=== PATIENT | male | born 1980 | race African-American/Black ===

== ENCOUNTER 2020-06-26 16:06 | Emergency (ER) | payer OTHER, SELFPAY ==
[2020-06-26] VITALS (15 sets, daily range): BP systolic 131–178; BP diastolic 61–99; PULSE 62–83; RESP 12–20; TEMP 36.6–36.8; O2SAT 94–100
--- NOTE | ~2020-06-26 | CT_ITS ---
EXAMINATION: CT brain wo con EXAM DATE: 06/26/2020 19:05 INDICATION: Dizziness. TECHNIQUE: Spiral CT of the head was performed without contrast. Axial, coronal and sagittal images were reviewed. The dose-length product (DLP) for this examination was 605.33 mGy-cm. The exposure w as tailored according to patient size, and iterative reconstruction (ASIR) was used as additional dos e reduction technique. There is no prior study for comparison. FINDINGS: There is no acute intraparenchymal hemorrhage. No evidence of intraparenchymal brain mass lesion. No evidence of acute infarction. There is no mass effect or midline shift. The ventricles are normal in size. There are no extra-axial collections. There are no acute calvarial fractures. T he orbits are unremarkable. Soft tissue is unremarkable. The visualized sinuses and mastoid air yaw ls are well aerated. IMPRESSION: 1. Normal head CT examination. Reviewed, dictated and finalized at location A.
--- NOTE | ~2020-06-26 | XR_ITS ---
EXAMINATION: XR chest 2V EXAM DATE: 06/26/2020 19:11 INDICATION: Dizziness, Hypertension, hx of anxiety TECHNIQUE: Frontal and lateral projections of the chest obtained and reviewed. There is no prior javier dy for comparison. FINDINGS: The lungs are clear. There are no pleural effusions. The cardiomediastinal silhouette is within normal limits. There is no pneumothorax suspected. The bones and soft tissues are unremarka ble. IMPRESSION: No acute cardiopulmonary findings. Reviewed, dictated and finalized at location A.
--- NOTE | 2020-06-26 16:16 | ECG_ITS ---
Measurements Intervals [place] Rate: 72 P: 47 [place]: 203 QRS: 35 QRSD: 96 T: 44 QT: 349 QTc: 384 Interpretive Statements SINUS RHYTHM NORMAL ECG Electronically Signed On 06-26-2020 21:19:40 CDT by Zachary Green D.O.
--- NOTE | 2020-06-26 17:24 | PC.NURSE ---
patient brought back to ED room 4 with c/o dizziness since Wednesday. see triage notes. alert. oriented. tearful at times. hx of HTN with his BP being elevated lately. assessments documented. reviewed current treatment plan with patient. SL inserted. labs drawn and sent. 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 call light in reach.
[2020-06-26 17:27] LABS: Basophils Percent Auto 0.4 % (0.2-1.2); Eosinophils Percent Auto 0.6 % (0-4.4); Hemoglobin 14.4 g/dL (14.0-18.0); Immature Granulocyte Absolute 0.01 K/mm3 (0.00-0.031); Immature Granulocyte Percent A 0.2 % (0-0.5); Lymphocytes Absolute Auto 1.29 K/mm3 (0.9-3.2); Lymphocytes Percent Auto 25.4 % (18.3-44.2); Mean Corpuscular HGB Conc 32.7 g/dl (32-36); Mean Corpuscular Hemoglobin 26.8 pg (26-34); Mean Corpuscular Volume 81.9 fl (80-100); Monocytes Absolute Auto 0.4 K/mm3 (0.1-0.6); Monocytes Percent Auto 7.7 % (2.6-8.5); Neutrophils Absolute Auto 3.3 K/mm3 (1.3-6.7); Neutrophils Percent Auto 65.7 % (45.5-73.1); Platelet Count Result 273 k/mm3 (150-375); Red Blood Count 5.37 M/mm3 (4.6-6.20); Red Cell Distribution Width 12.7 % (11.5-14.5); White Blood Count 5.1 K/mm3 (4.5-10.0)
[2020-06-26 17:37] LABS: Prothrombin Time 12.8 Seconds (11.1-14.7)
[2020-06-26 17:38] LABS: Anion Gap 7 mmol/L (8-16); Blood Urea Nitrogen 19 mg/dL (9-20); Carbon Dioxide 34 mmol/L (22-30); Chloride 96 mmol/L (98-107); Estimated CRCL calculation 91 ml/min; Estimated Glomerular Filt Rate > 60; Glucose 119 mg/dL (75-110); Partial Thromboplastin Time 28.1 SECONDS (22.3-36.8); Potassium 3.6 mmol/L (3.4-5.0); Sodium 137 mmol/L (137-145)
[2020-06-26] MEDS: MECLIZINE HCL 25 MG TABLET PO (17:47)
[2020-06-26 17:50] LABS: Troponin I < 0.012 ng/mL (0.000-0.034)
--- NOTE | 2020-06-26 18:08 | ED.DIZZY ---
HPI - Dizziness General Chief Complaint: Dizziness Stated Complaint: DIZZINESS Time Seen by Provider: 06/26/20 17:11 History of Present Illness HPI Narrative: Patient is a 39-year-old male who presents ER with dizziness and anxiety. Patient reports that 4 days ago he was at his home in [place] cleaning the house when he inhaled some bleach. He began to feel dizzy. The dizziness is like he might pass out and everything was moving around him. No chest pain or chest pressure. Began to feel anxious after this. He went to be seen in ER locally with an unremarkable evaluation. He reports since he is come back to [place] where he works has had the symptoms intermittently. He is also becoming increasingly more anxious that there is something wrong with him such as a stroke. He reports that his blood pressures been running slightly more elevated than typical. He has no focal weakness to an arm or leg. No numbness or tingling. He has had no cough or audible wheezing. Patient has been taking Flonase and sinus decongestants as he does have history of vertigo that this may help his symptoms. Related Data Home Medications Medication Instructions Recorded Confirmed lisinopril DAILY 06/26/20 lisinopril-hydrochlorothiazide tablet DAILY 06/26/20 Allergies Allergy/AdvReac Type Severity Reaction Status Date / Time No Known Allergies Allergy Verified 06/26/20 16:12 Review of Systems Review of Systems: All systems reviewed & are unremarkable except as noted in HPI and below Constitutional: Constitutional: Denies chills, Denies fever(s) and Denies weakness ENT: Reports vertigo, Reports nasal congestion and Denies sore throat Cardiovascular: Cardiovascular: Denies chest pain and Denies radiating jaw, neck or arm pain Respiratory: Respiratory: Denies cough, Denies dyspnea and Denies wheezing Gastrointestinal: Gastrointestinal: Denies abdominal pain, Denies diarrhea, Denies nausea and Denies vomiting Neurologic: Reports vertigo, Denies syncope, Denies focal weakness and Denies numbness Psychiatric: Psychiatric: Reports anxiety and Denies depression [facility] Past Medical History Medical History (Updated 06/27/20 @ 00:00 by Background Daemon) Hypertension Vertigo Surgical History Surgical History (Updated 06/26/20 @ 18:11 by Pete Palm MD) H/O Achilles tendon repair Social History Social History (Updated 06/26/20 @ 18:11 by Pete Palm MD) Smoking status: Never smoker Exam Narrative: Exam Narrative: GENERAL: Well-appearing, well-nourished, and in no acute distress. HEAD: Normocephalic, atraumatic. ENT: TMs normal bilaterally. CHEST: Clear to auscultation. No respiratory distress. HEART: Regular rate and rhythm. Normal peripheral pulses. ABDOMEN: Soft, nontender, nondistended. EXTREMITIES: Normal range of motion. No edema. SKIN: Warm, dry, no rash. NEURO: Alert and oriented x3. PSYCH: Mildly anxious but normal thought content. No hallucinations. Course Course Emergency Course: Meclizine has improved patient's symptoms. CT and chest x-ray pending. If negative, discharge home. Vital Signs Vital signs: Vital Signs Temperature 98 F 06/26/20 16:07 Pulse Rate 74 06/26/20 16:07 Respiratory Rate 20 06/26/20 16:07 Blood Pressure 151/98 H 06/26/20 16:07 Pulse Oximetry 100 06/26/20 16:07 Temperature 98.2 F 06/26/20 21:02 Pulse Rate 68 06/26/20 21:02 Respiratory Rate 14 06/26/20 21:02 Blood Pressure 134/63 06/26/20 21:02 Pulse Oximetry 100 06/26/20 21:02 MDM - Dizziness Lab Data Result diagrams: 06/26/20 17:20 06/26/20 17:20 Labs: Lab Results 06/26/20 06/26/20 06/26/20 Range/Units 17:20 17:20 17:20 WBC 5.1 (4.5-10.0) K/mm3 RBC 5.37 (4.6-6.20) M/mm3 Hgb 14.4 (14.0-18.0) g/dL Hct 44.0 (42.0-52.0) % MCV 81.9 (80-100) fl MCH 26.8 (26-34) pg MCHC 32.7 (32-36) g/dl RDW
--- NOTE | 2020-06-26 18:52 | PC.NURSE ---
patient ambulated to restroom. now back in room. updated on expected wait time. states he has not had CT study yet. will call department.
--- NOTE | 2020-06-26 18:58 | PC.NURSE ---
patient to CT now via stretcher.
== END 2020-06-26 21:03 | disposition home or self-care (01) ==
PROVIDERS: Emergency Provider Emergency Medicine
DX: H81.10 Benign paroxysmal vertigo, unspecified ear (principal); F41.9 Anxiety disorder, unspecified; I10 Essential (primary) hypertension
CPT/HCPCS: 36415; 70450; 71046; 80048; 84484; 85025; 85610; 85730; 93005; 99284; A9270